=== PATIENT | female | born 1950 | race Caucasian/White ===

== ENCOUNTER 2017-10-26 08:57 | Emergency (ER) | payer OTHER ==
[~2017-10-26] VITALS: Ht 160 cm; Wt 157.6 kg
[~2017-10-26 08:57] MED LIST: ADVAIR HFA120 INHALA IH; AMLODIPINE BESY10 MG PO; AMLODIPINE BESYL5 MG PO; ATIVAN0.5 MG PO; BACTRIM,SEPT1 TABLET PO; CENTRUM SILVER1 EAC3 PO; CIPRO750 MG PO; DOXYCYCLINE HY100 MG PO; ENDOCET 5-3251 EACH PO; HYDRALAZINE HCL10 MG PO; HYDROCHLOROTHIA25 MG PO; KETOCONAZOLE60 GM TP; LINEZOLID600 MG PO; LISINOPRIL10 MG PO; LISINOPRIL40 MG PO; LOPRESSOR25 MG PO; METOPROLOL SUCC50 MG PO; METOPROLOL TART50 MG PO; MOTRIN IB200 MG PO; MYCOSTATIN 100,60 ML PO; SPIRIVA RESPIMAT4 GM IH; TRAMADOL HCL50 MG PO; TYLENOL REGULA325 MG PO; XANAX0.25 MG PO; XANAX0.5 MG PO; ZOLOFT50 MG PO; ZYVOX600 MG PO
[2017-10-26 09:44] LABS: HEMATOCRIT 35.6 % (36.0-46.0); MCHC 32.9 G/DL (30.0-36.0); MCV 97.3 FL (83-99); PLATELET COUNT 256 K/uL (156-360); RBC DIS.WIDTH-CV 13.9 % (11.8-14.6); RBC DIS.WIDTH-SD 49.6 % (39-53); WHITE BLOOD COUNT 9.4 K/uL (4.1-10.2)
[2017-10-26 09:45] LABS: HEMOGLOBIN 11.7 G/DL (11.9-15.5); RED BLOOD COUNT 3.66 M/uL (3.80-5.20)
[2017-10-26 09:55] LABS: CHLORIDE 96 mEq/L (99-109); POTASSIUM 3.8 mEq/L (3.7-5.4); SODIUM 139 mEq/L (136-147)
[2017-10-26 09:56] LABS: GLUCOSE 119 mg/dL (70-99)
[2017-10-26 10:01] LABS: CREATININE 1.2 mg/dL (0.6-1.3); GFR ESTIMATE (CALCULATED) 48 mL/min/; UREA NITROGEN (BUN) 15 mg/dL (9-23)
[2017-10-26] MEDS ORDERED: ALBUTEROL2.5 MG/3 M IH (13:13)
[2017-10-26] MEDS ORDERED: PREDNISONE50 MG PO (13:13)
[2017-10-26 13:59] VITALS: BP 107/53
== END 2017-10-26 14:08 | disposition home or self-care (01) ==
LOC: EME → EDBD 08:57 → EME 14:08
PROVIDERS: Emergency Medicine
DX: N93.9 Abnormal uterine and vaginal bleeding, unspecified (principal); J44.1 Chronic obstructive pulmonary disease with (acute) exacerbation; I10 Essential (primary) hypertension; Z87.891 Personal history of nicotine dependence; Z90.49 Acquired absence of other specified parts of digestive tract; Z88.1 Allergy status to other antibiotic agents; Z88.5 Allergy status to narcotic agent
CPT/HCPCS: 71045; 76856; 80048; 85027; 94640; 99281; 99284; J7512

== ENCOUNTER 2017-11-23 10:43 | Day surgery (SDC) | payer OTHER ==
[~2017-11-23] VITALS: Ht 160 cm; Wt 158.8 kg
[~2017-11-23 10:43] MED LIST changes: +ADVAIR 100/501 DISK IH; +ALBUTEROL2.5 MG/3 M IH; +ERGOCALCIF50000 UNIT PO; +LASIX40 MG PO; +LEVO-T112 MCG PO; +LO-DOSE ASPIRIN81 M2 PO; +NEURONTIN100 MG PO; +PREDNISONE50 MG PO; +TENORMIN25 MG PO; +TENORMIN50 MG PO; +VENTOLIN HFA18 GM IH; +VITAMIN B12 100MCG PO; +VITAMIN D31000 UNI2 PO; +ZOCOR40 MG PO
[2017-11-23 11:30] VITALS: BP 188/89
[2017-11-23 11:42] LABS: BASOPHIL (%) 0.6 % (0-1); EOSINOPHIL (%) 5.3 % (0-5); EOSINOPHIL COUNT 0.4 K/uL (0-0.3); HEMOGLOBIN 12.2 G/DL (11.9-15.5); IMMATURE GRANULOCYTE (%) 0.3 % (0.0-0.7); LYMPHOCYTE (%) 15.7 % (15-42); LYMPHOCYTE COUNT 1.1 K/uL (1.0-2.8); MCH 29.6 PG (29.0-34.0); MCHC 31.3 G/DL (30.0-36.0); MCV 94.7 FL (83-99); MONOCYTE (%) 6.5 % (3-12); MONOCYTE COUNT 0.5 K/uL (0-0.8); NEUTROPHIL (%) 71.6 % (45-76); RBC DIS.WIDTH-CV 13.6 % (11.8-14.6); RED BLOOD COUNT 4.12 M/uL (3.80-5.20); WHITE BLOOD COUNT 6.9 K/uL (4.1-10.2)
[2017-11-23 11:46] LABS: PLATELET COUNT 385 K/uL (156-360)
[2017-11-23 12:07] LABS: CHLORIDE 101 MEQ/L (99-109); CREATININE 1.1 MG/DL (0.6-1.3); GFR ESTIMATE (CALCULATED) 53 mL/min/; GLUCOSE 109 mg/dL (70-99); POTASSIUM 4.3 MEQ/L (3.7-5.4); SODIUM 141 MEQ/L (136-147); UREA NITROGEN (BUN) 9 mg/dL (9-23)
[2017-11-23] MEDS ORDERED: IBUPROFEN800 MG PO (15:10)
[2017-11-23 16:15] VITALS: BP 144/67
[2017-11-23 16:53] VITALS: BP 169/77
== END 2017-11-23 16:55 | disposition home or self-care (01) ==
LOC: SDC 10:43
PROVIDERS: Obstetrics & Gynecology
DX: N84.0 Polyp of corpus uteri (principal); N95.0 Postmenopausal bleeding; I10 Essential (primary) hypertension; J44.9 Chronic obstructive pulmonary disease, unspecified; E66.01 Morbid (severe) obesity due to excess calories; Z68.44 Body mass index [BMI] 60.0-69.9, adult; E03.9 Hypothyroidism, unspecified; Z87.891 Personal history of nicotine dependence; Z88.1 Allergy status to other antibiotic agents; Z88.5 Allergy status to narcotic agent; Z79.82 Long term (current) use of aspirin
CPT/HCPCS: 80048; 81025; 85025; 86850; 86900; 86901; 87641; 88305; J0330; J2405; J3010; Q0175